=== PATIENT | female | born 1935 | race Caucasian/White ===

== ENCOUNTER 2018-03-11 18:43 | Emergency (ER) | payer MEDICARE, BC ==
[~2018-03-11] VITALS: Ht 157.5 cm; Wt 60.0 kg
[2018-03-11 18:58] VITALS: BP 148/86
[2018-03-11 19:26] LABS: BASOPHILS # (AUTO) 0.03 x10^3/uL (0-0.1); BASOPHILS % (AUTO) 1 % (0-1); EOSINOPHILS % (AUTO) 0 % (1-7); LYMPHOCYTES # (AUTO) 1.65 x10^3/uL (1-3.4); LYMPHOCYTES % (AUTO) 28 % (22-44); MD NO; MEAN CORPUSCULAR HEMOGLOBIN 33.7 pg (27.0-34.8); MEAN CORPUSCULAR HGB CONC 34.5 g/dL (32.4-35.8); MEAN CORPUSCULAR VOLUME 97.7 fL (80-100); MONOCYTES # (AUTO) 0.63 x10^3/uL (0.2-0.8); MONOCYTES % (AUTO) 11 % (2-9); NEUTROPHILS # (AUTO) 3.59 x10^3/uL (1.8-6.8); NEUTROPHILS % (AUTO) 61 % (42-75); PLATELET COUNT 177 x10^3/uL (130-400); RED BLOOD COUNT 3.15 x10^6/uL (3.82-5.3); RED CELL DISTRIBUTION WIDTH 13.2 % (9.6-15.2)
[2018-03-11] MEDS ORDERED: SODIUM CHLORIDE FLUSH 10ML SYR IVF ONE (19:30)
[2018-03-11 19:34] LABS: INTERNATIONAL NORMALIZED RATIO 1.3 (0.93-1.1); PROTHROMBIN TIME 13.5 Seconds (9.6-11.5)
[2018-03-11 19:35] LABS: ALANINE AMINOTRANSFERASE 23 U/L (12-78); ALBUMIN 3.2 g/dL (3.4-5.0); ANION GAP 9 mmol/L (5-15); CALCIUM 8.7 mg/dL (8.5-10.1); CHLORIDE 106 mmol/L (98-107); CREATININE 0.87 mg/dL (0.55-1.02)
[2018-03-11 19:40] LABS: ALKALINE PHOSPHATASE 69 U/L (45-117); BILIRUBIN,TOTAL 0.6 mg/dL (0.2-1.0); TOTAL PROTEIN 7.2 g/dL (6.4-8.2); TROPONIN I < 0.015 ng/mL (0.000-0.045)
== END 2018-03-11 21:16 | disposition home or self-care (01) ==
LOC: ED 19:42
DX: G30.9 Alzheimer's disease, unspecified (principal); F02.80 Dementia in other diseases classified elsewhere, unspecified severity, without behavioral disturbance, psychotic disturbance, mood disturbance, and anxiety; I48.2 Chronic atrial fibrillation; R51 Headache; Z95.0 Presence of cardiac pacemaker; V47.0XXA Car driver injured in collision with fixed or stationary object in nontraffic accident, initial encounter; Y93.89 Activity, other specified; Y99.8 Other external cause status; Y92.89 Other specified places as the place of occurrence of the external cause
CPT/HCPCS: 36415; 70450; 71045; 80053; 83880; 84484; 85025; 85610; 85730; 93005; 93970; 99283; 99285

== ENCOUNTER 2019-12-12 15:16 | Emergency (ER) | payer MEDICARE, BC ==
[~2019-12-12] VITALS: Ht 172.7 cm; Wt 70.0 kg
--- NOTE | 2019-12-12 15:36 | NUR ---
PT'S SON IS GERALD GALLEGO #[phone]
[2019-12-12] MEDS ORDERED: LIDOCAINE 1%, 10ML INFIL ONE (16:00)
[2019-12-12 16:17] LABS: BASOPHILS # (AUTO) 0.04 x10^3/uL (0-0.1); BASOPHILS % (AUTO) 1 % (0-1); EOSINOPHILS # (AUTO) 0.12 x10^3/uL (0-0.4); EOSINOPHILS % (AUTO) 2 % (1-7); LYMPHOCYTES # (AUTO) 2.22 x10^3/uL (1-3.4); LYMPHOCYTES % (AUTO) 30 % (22-44); MD NO; MEAN CORPUSCULAR HEMOGLOBIN 30.4 pg (27.0-34.8); MEAN CORPUSCULAR HGB CONC 33.5 g/dL (32.4-35.8); MEAN CORPUSCULAR VOLUME 90.7 fL (80-100); MEAN PLATELET VOLUME 8.7 fL (7.4-10.4); MONOCYTES # (AUTO) 0.65 x10^3/uL (0.2-0.8); MONOCYTES % (AUTO) 9 % (2-9); NEUTROPHILS # (AUTO) 4.48 x10^3/uL (1.8-6.8); NEUTROPHILS % (AUTO) 60 % (42-75); PLATELET COUNT 210 x10^3/uL (130-400); RED BLOOD COUNT 3.77 x10^6/uL (3.82-5.3); RED CELL DISTRIBUTION WIDTH 13.3 % (9.6-15.2)
--- NOTE | 2019-12-12 16:18 | NUR ---
PT BIB [facility] FROM HOME. PER EMS, PT HAD A SMALL AREA OF SKIN CS REMOVED X3 DAYS AGO. PER FAMILY, SINCE THEN, PT WITH BLEEDING AT SITE. PT HAS DEMENTIA, ALERT TO SELF ONLY, HOWEVER PT IS ABLE TO FOLLOW DIRECTIONS. PT IS ON COUMADIN FOR HX OF A FIB. ERPA-C AT BEDSIDE, PT'S RT KNEE DRSG REMOVED, PT'S WD WITH SMALL AMOUNT OF OOZING BLOOD, CONTROLLED BY PRESSURE. WILL FOLLOW ORDERS.
[2019-12-12] MEDS ORDERED: LIDOCAINE-MPF 1%, 2ML ONE (16:22)
--- NOTE | 2019-12-12 16:30 | NUR ---
TECH AT BEDSIDE TO CLEAN PT WD PER ER PA-C ORDERS.
[2019-12-12] MEDS ORDERED: TRANEXAMIC ACID 100 MG/ML, 10ML ONE (16:41)
[2019-12-12 16:51] LABS: INTERNATIONAL NORMALIZED RATIO 6.11 (0.93-1.1)
[2019-12-12] MEDS ORDERED: TRANEXAMIC ACID 100 MG/ML, 10ML TP ONE (17:00)
[2019-12-12] MEDS ORDERED: PHYTONADIONE 5 MG TABLET PO ONE (17:00)
--- NOTE | 2019-12-12 17:08 | NUR ---
PT'S SON JULIÁN CALLED, UPDATED WITH PT POC. MEDICATIONS REQUESTED FROM PHARMACY.
--- NOTE | 2019-12-12 17:27 | NUR ---
BRYCE NAJERA AT BEDSIDE FOR SUTURE.
[2019-12-12] MEDS ORDERED: LIDOCAINE 1%-EPI 1:100K, 20ML ONE (17:30)
--- NOTE | 2019-12-12 18:14 | NUR ---
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 PT'S DRSG REMAINS CLEAN AND DRY.
[2019-12-12 18:41] VITALS: BP 111/72
--- NOTE | 2019-12-12 18:41 | NUR ---
[facility]S S[facility], VERBALIZED UNDERSTANDING. PT'S DRSG REMAINS [facility] FOR D/C.
== END 2019-12-12 18:52 | disposition home or self-care (01) ==
LOC: ED 18:00
DX: S81.831A Puncture wound without foreign body, right lower leg, initial encounter (principal); L76.22 Postprocedural hemorrhage of skin and subcutaneous tissue following other procedure; Z79.01 Long term (current) use of anticoagulants; I48.91 Unspecified atrial fibrillation; Z95.0 Presence of cardiac pacemaker; X58.XXXA Exposure to other specified factors, initial encounter; Y93.89 Activity, other specified; Y92.89 Other specified places as the place of occurrence of the external cause; Y99.8 Other external cause status
CPT/HCPCS: 12001; 36415; 85025; 85610; 99283; J3490